=== PATIENT | male | born 2000 | race Caucasian/White ===

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

== ENCOUNTER 2022-05-24 12:01 | Inpatient (IN) | payer OTHER ==
[2022-05-24] MEDS ORDERED: SODIUM CHLORIDE 1,000 ML IV STA ×2 (12:24→15:16)
[2022-05-24] MEDS ORDERED: ONDANSETRON 4 MG/2 ML VIAL IVPUSH ONE (12:25)
[2022-05-24] MEDS ORDERED: ACETAMINOPHEN 1000 MG/100 ML BAG IVPB ONE (12:26)
[2022-05-24] MEDS ORDERED: ONDANSETRON 4 MG/2 ML VIAL ONE (12:47)
[2022-05-24] MEDS ORDERED: ACETAMINOPHEN INJECTION 100 ML IVPB ONE (12:47)
[2022-05-24 12:57] LABS: BASO % 0.3 % (0-2.0); EOS % 0.4 % (0-4.5); HEMATOCRIT 40.5 % (35.4-49); HEMOGLOBIN 13.8 GM/dL (11.7-16.9); LYMPH % 9.8 % (8-40); MCH 26.4 pg (25.7-33.7); MEAN CELL VOLUME 77.6 fl (80-96); MEAN PLT VOLUME 8.5 fl (7.5-11.1); NEUT % 79.5 % (42.8-82.8); PLATELET COUNT 194 10^3/uL (134-434); RBC 5.21 M/mm3 (4.00-5.60); RDW 13.8 % (11.9-15.9); WHITE BLOOD COUNT 10.7 K/mm3 (4.0-10.0)
[2022-05-24] MEDS ORDERED: morphine CARPU-JECT 2 MG/1 ML DISP.SYRIN IM ONE (12:57)
[2022-05-24] MEDS ORDERED: METOCLOPRAMIDE HCL INJECTION 10 MG/2 ML VIAL IVPUSH ONE (12:59)
[2022-05-24] MEDS ORDERED: METOCLOPRAMIDE HCL INJECTION 10 MG/2 ML VIAL ONE (13:00)
[2022-05-24 13:26] LABS: CALCIUM 9.6 mg/dL (8.5-10.1)
[2022-05-24] MEDS ORDERED: KETOROLAC TROMETHAMINE 30 MG/1 ML VIAL IVPUSH ONE (13:26)
[2022-05-24] MEDS ORDERED: KETOROLAC TROMETHAMINE 30 MG/1 ML VIAL ONE (13:26)
[2022-05-24 13:28] LABS: ALBUMIN 4.2 g/dl (3.4-5.0); BLOOD UREA NITROGEN 7.2 mg/dL (7-18)
[2022-05-24 13:30] LABS: CREATININE 1.1 mg/dL (0.55-1.3)
[2022-05-24 13:31] LABS: BILIRUBIN,TOTAL 1.2 mg/dL (0.2-1); TOT PROT 7.2 g/dl (6.4-8.2)
[2022-05-24] MEDS ORDERED: CEFTRIAXONE 1 GM in DEXTROSE 5%-WATER - 100 ML IVPB ONE (15:27)
[2022-05-24] MEDS ORDERED: CEFTRIAXONE 1 GM/50 ML BAG ONE (15:37)
[2022-05-24 16:45] LABS: ACTIVATED PTT 30.7 SECONDS (25.2-36.5); INR 1.19 (0.83-1.09); PROTHROMBIN TIME (PATIENT) 13.7 SEC (9.7-13.0)
[2022-05-24 17:14] LABS: EPI CELLS 5 /uL (0-25.1); HYALINE CASTS 1 /uL (0-3.1); URINE APPEARANCE CLEAR; URINE BACTERIA 3 /uL (0-1359); URINE BILIRUBIN NEGATIVE (NEGATIVE); URINE COLOR YELLOW; URINE GLUCOSE (UA) NEGATIVE (NEGATIVE); URINE KETONE 1+ (NEGATIVE); URINE LEUK ESTERASE NEGATIVE (NEGATIVE); URINE NITRITE NEGATIVE (NEGATIVE); URINE PROTEIN NEGATIVE (NEGATIVE); URINE RBC 288 /uL (0-23.9); URINE UROBILINOGEN 0.2 mg/dL (0.2-1.0); URINE WBC 12 /uL (0-25.8)
[2022-05-24] MEDS ORDERED: ONDANSETRON 4 MG/2 ML VIAL IVPUSH PRN (18:01)
[2022-05-24] MEDS ORDERED: TAMSULOSIN HCL 0.4 MG CAP PO ONE (19:05)
[2022-05-24] MEDS: SODIUM CHLORIDE 1,000 ML IV SCH (19:15)
[2022-05-24] MEDS ORDERED: TAMSULOSIN HCL 0.4 MG CAP ONE (20:00)
[2022-05-24] MEDS ORDERED: KETOROLAC TROMETHAMINE 15 MG/ML VIAL ONE (23:50)
[2022-05-24] MEDS: KETOROLAC TROMETHAMINE 15 MG/ML VIAL IVPUSH PRN (23:55)
[2022-05-25 01:14] VITALS: BMI 38.9
[2022-05-25] MEDS: SODIUM CHLORIDE 1,000 ML IV SCH ×2 (01:30→09:49)
[2022-05-25] MEDS: ACETAMINOPHEN 325 MG TABLET (FP) PO PRN ×2 (01:30→08:20)
[2022-05-25] MEDS: KETOROLAC TROMETHAMINE 15 MG/ML VIAL IVPUSH PRN ×2 (04:17→22:55)
[2022-05-25] MEDS ORDERED: TAMSULOSIN HCL 0.4 MG CAP PO SCH (08:30)
[2022-05-25] MEDS ORDERED: PNEUMOC 20-VAL CONJ-DIP CRM/PF 0.5 ML SYRINGE IM ONE (10:00)
[2022-05-25] MEDS ORDERED: CEFTRIAXONE 1 GM in DEXTROSE 5%-WATER - 50 ML IVPB SCH (10:00)
[2022-05-25] MEDS ORDERED: ACETAMINOPHEN 1000 MG/100 ML BAG IVPB ONE (10:45)
[2022-05-25] MEDS ORDERED: morphine CARPU-JECT 2 MG/1 ML DISP.SYRIN IVPUSH ONE (11:00)
[2022-05-25] MEDS ORDERED: oxyCODONE HCL 5 MG TABLET PO PRN (11:56)
[2022-05-25] MEDS ORDERED: LACTATED RINGERS SOLUTION 1,000 ML IV SCH (12:00)
[2022-05-25] MEDS ORDERED: MIDAZOLAM HCL 2 MG/2 ML SINGLE DOSE VIAL ONE (12:26)
[2022-05-25] MEDS ORDERED: PROPOFOL 20 ML ONE ×3 (12:26→12:52)
[2022-05-25] MEDS ORDERED: ePHEDrine SULFATE 50 MG/1 ML AMPULE ONE (12:28)
[2022-05-25] MEDS ORDERED: SUCCINYLCHOLINE CHLORIDE 200 MG/10 ML SYRINGE ONE (12:28)
[2022-05-25] MEDS ORDERED: ceFAZolin SODIUM 1 GM VIAL IVPB ONE (12:45)
[2022-05-25] MEDS ORDERED: LIDOCAINE HCL 2% JELLY 10 ML CARTRIDGE ONE (13:07)
[2022-05-25] MEDS ORDERED: ONDANSETRON 4 MG/2 ML VIAL IVPUSH PRN (13:48)
[2022-05-25] MEDS: LACTATED RINGERS SOLUTION 1,000 ML IV SCH ×2 (15:54→18:21)
[2022-05-25] MEDS ORDERED: ACETAMINOPHEN 1000 MG/100 ML BAG IVPB PRN (16:00)
[2022-05-25] MEDS ORDERED: ACETAMINOPHEN 325 MG TABLET (FP) PO PRN (17:59)
[2022-05-26] MEDS: KETOROLAC TROMETHAMINE 15 MG/ML VIAL IVPUSH PRN ×2 (09:31→18:18)
[2022-05-26] MEDS: CEFTRIAXONE 1 GM in DEXTROSE 5%-WATER - 50 ML IVPB SCH (09:31)
[2022-05-26] MEDS: TAMSULOSIN HCL 0.4 MG CAP PO SCH (09:31)
[2022-05-26 10:00] LABS: HEMATOCRIT 37.8 % (35.4-49); HEMOGLOBIN 12.7 GM/dL (11.7-16.9); MCH 25.7 pg (25.7-33.7); MCHC 33.7 g/dl (32.0-35.9); MEAN CELL VOLUME 76.5 fl (80-96); MEAN PLT VOLUME 9.3 fl (7.5-11.1); PLATELET COUNT 174 10^3/uL (134-434); RBC 4.95 M/mm3 (4.00-5.60); RDW 13.8 % (11.9-15.9); WHITE BLOOD COUNT 10.3 K/mm3 (4.0-10.0)
[2022-05-26 10:25] LABS: ALBUMIN 3.4 g/dl (3.4-5.0)
[2022-05-26 10:28] LABS: BLOOD UREA NITROGEN 8.4 mg/dL (7-18)
[2022-05-26 10:31] LABS: CREATININE 0.7 mg/dL (0.55-1.3)
[2022-05-26 10:32] LABS: BILIRUBIN,TOTAL 0.8 mg/dL (0.2-1); TOT PROT 6.2 g/dl (6.4-8.2)
[2022-05-26 10:36] LABS: CALCIUM 8.9 mg/dL (8.5-10.1)
[2022-05-26] MEDS: LACTATED RINGERS SOLUTION 1,000 ML IV SCH (16:26)
[2022-05-27] MEDS: KETOROLAC TROMETHAMINE 15 MG/ML VIAL IVPUSH PRN ×4 (00:15→21:16)
[2022-05-27] MEDS: TAMSULOSIN HCL 0.4 MG CAP PO SCH (08:26)
[2022-05-27] MEDS: CEFTRIAXONE 1 GM in DEXTROSE 5%-WATER - 50 ML IVPB SCH (09:45)
[2022-05-27 10:15] LABS: BASO % 0.6 % (0-2.0); EOS % 1.6 % (0-4.5); HEMATOCRIT 40.9 % (35.4-49); HEMOGLOBIN 13.6 GM/dL (11.7-16.9); LYMPH % 17.3 % (8-40); MCH 25.7 pg (25.7-33.7); MCHC 33.2 g/dl (32.0-35.9); MEAN CELL VOLUME 77.4 fl (80-96); MEAN PLT VOLUME 8.8 fl (7.5-11.1); MONO % 11.5 % (3.8-10.2); PLATELET COUNT 186 10^3/uL (134-434); RBC 5.29 M/mm3 (4.00-5.60); RDW 13.6 % (11.9-15.9); WHITE BLOOD COUNT 7.6 K/mm3 (4.0-10.0)
[2022-05-27] MEDS ORDERED: LACTATED RINGERS SOLUTION 1,000 ML IV SCH ×2 (14:29→18:47)
[2022-05-27] MEDS: LACTATED RINGERS SOLUTION 1,000 ML IV SCH (18:52)
[2022-05-27 20:34] VITALS: RESP 20
[2022-05-28] MEDS: KETOROLAC TROMETHAMINE 15 MG/ML VIAL IVPUSH PRN ×2 (03:34→09:58)
[2022-05-28] MEDS: TAMSULOSIN HCL 0.4 MG CAP PO SCH (09:57)
[2022-05-28] MEDS: CEFTRIAXONE 1 GM in DEXTROSE 5%-WATER - 50 ML IVPB SCH (09:57)
[2022-05-28 15:46] VITALS: BP 145/81; PULSE 58; TEMP 99
== END 2022-05-28 19:01 | disposition home or self-care (01) | DRG 465 ==
LOC: JER 12:01 → JASUSAT 12:56 → UNDOADMIN 12:56 → JERBED 12:56 → SUATTDRO 12:56 → J8W 05-25 00:30 → JERBED 05-25 00:30 → JASUSAT 05-26 18:18 → J8W 05-26 18:19
PROVIDERS: ADMIT Internal Medicine
PROC: BT1FZZZ Fluoroscopy of Left Kidney, Ureter and Bladder (ICD-10-PCS; 2022-05-25)
PROC: 0T778DZ Dilation of Left Ureter with Intraluminal Device, Via Natural or Artificial Opening Endoscopic (ICD-10-PCS; principal; 2022-05-25 14:30)
DX: N13.2 Hydronephrosis with renal and ureteral calculous obstruction (principal); H61.21 Impacted cerumen, right ear; H65.192 Other acute nonsuppurative otitis media, left ear; J45.909 Unspecified asthma, uncomplicated; R11.2 Nausea with vomiting, unspecified; G47.33 Obstructive sleep apnea (adult) (pediatric); R31.9 Hematuria, unspecified
CPT/HCPCS: 36415; 71046-TC-FY; 74176-TC; 76000-TC-FY; 76870-TC; 80053; 81003; 83690; 85025; 85027; 85610; 85730; 87086; 93005; 93010; 94660; 94760; 99285-25; C9803-CS; U0003; U0005

== ENCOUNTER 2022-05-29 10:26 | Inpatient (IN) | payer OTHER ==
[2022-05-29] MEDS ORDERED: KETOROLAC TROMETHAMINE 30 MG/1 ML VIAL IM ONE (10:43)
[2022-05-29] MEDS ORDERED: ONDANSETRON 4 MG/2 ML VIAL IVPUSH ONE (10:43)
[2022-05-29] MEDS ORDERED: ONDANSETRON 4 MG/2 ML VIAL ONE (11:03)
[2022-05-29] MEDS ORDERED: KETOROLAC TROMETHAMINE 30 MG/1 ML VIAL ONE (11:03)
[2022-05-29 11:22] VITALS: BMI 32.5
[2022-05-29 11:51] LABS: BASO % 0.3 % (0-2.0); EOS % 0.5 % (0-4.5); HEMATOCRIT 43.3 % (35.4-49); HEMOGLOBIN 14.6 GM/dL (11.7-16.9); LYMPH % 7.2 % (8-40); MCH 25.8 pg (25.7-33.7); MCHC 33.7 g/dl (32.0-35.9); MEAN CELL VOLUME 76.5 fl (80-96); MEAN PLT VOLUME 8.4 fl (7.5-11.1); MONO % 7.5 % (3.8-10.2); NEUT % 84.5 % (42.8-82.8); PLATELET COUNT 201 10^3/uL (134-434); RBC 5.66 M/mm3 (4.00-5.60); RDW 13.9 % (11.9-15.9); WHITE BLOOD COUNT 11.1 K/mm3 (4.0-10.0)
[2022-05-29] MEDS ORDERED: SODIUM CHLORIDE 0.9% 500 ML INFUS.BAG IV ONE (11:56)
[2022-05-29] MEDS ORDERED: KETOROLAC TROMETHAMINE 30 MG/1 ML VIAL IVPUSH ONE (11:57)
[2022-05-29 12:13] LABS: CALCIUM 9.4 mg/dL (8.5-10.1)
[2022-05-29 12:14] LABS: BLOOD UREA NITROGEN 9.4 mg/dL (7-18); MAGNESIUM 1.8 mg/dL (1.8-2.4)
[2022-05-29 12:17] LABS: CREATININE 0.8 mg/dL (0.55-1.3)
[2022-05-29 12:18] LABS: BILIRUBIN,TOTAL 0.7 mg/dL (0.2-1); TOT PROT 7.6 g/dl (6.4-8.2)
[2022-05-29 12:21] LABS: ALBUMIN 4.1 g/dl (3.4-5.0)
[2022-05-29] MEDS ORDERED: oxyCODONE HCL 5 MG TABLET PO PRN (15:49)
[2022-05-29] MEDS ORDERED: DOCUSATE SODIUM 100 MG CAPSULE (FP) PO PRN (15:49)
[2022-05-29] MEDS ORDERED: ACETAMINOPHEN 325 MG TABLET (FP) PO PRN (15:49)
[2022-05-29] MEDS ORDERED: SENNOSIDES 8.6MG TABLET (FP) PO PRN (15:49)
[2022-05-29 17:26] LABS: EPI CELLS 1 /uL (0-25.1); HYALINE CASTS 0 /uL (0-3.1); URINE APPEARANCE CLOUDY; URINE BACTERIA 8 /uL (0-1359); URINE BILIRUBIN NEGATIVE (NEGATIVE); URINE COLOR ORANGE; URINE GLUCOSE (UA) NEGATIVE (NEGATIVE); URINE KETONE 3+ (NEGATIVE); URINE LEUK ESTERASE 2+ (NEGATIVE); URINE NITRITE NEGATIVE (NEGATIVE); URINE PROTEIN 3+ (NEGATIVE); URINE RBC 442 /uL (0-23.9); URINE UROBILINOGEN 0.2 mg/dL (0.2-1.0); URINE WBC 1 /uL (0-25.8)
[2022-05-29] MEDS: SODIUM CHLORIDE 1,000 ML IV SCH (21:23)
[2022-05-29] MEDS: KETOROLAC TROMETHAMINE 15 MG/ML VIAL IVPUSH PRN (21:24)
[2022-05-29] MEDS ORDERED: CEFTRIAXONE 1 GM in DEXTROSE 5%-WATER - 50 ML IVPB SCH (22:00)
[2022-05-30 09:10] LABS: BASO % 0.4 % (0-2.0); EOS % 2.7 % (0-4.5); HEMATOCRIT 38.6 % (35.4-49); HEMOGLOBIN 13.2 GM/dL (11.7-16.9); MCH 26.3 pg (25.7-33.7); MCHC 34.1 g/dl (32.0-35.9); MEAN CELL VOLUME 77.1 fl (80-96); MEAN PLT VOLUME 8.6 fl (7.5-11.1); MONO % 11.2 % (3.8-10.2); NEUT % 68.7 % (42.8-82.8); PLATELET COUNT 177 10^3/uL (134-434); RBC 5.01 M/mm3 (4.00-5.60); RDW 13.7 % (11.9-15.9); WHITE BLOOD COUNT 8.1 K/mm3 (4.0-10.0)
[2022-05-30 09:20] LABS: CALCIUM 8.7 mg/dL (8.5-10.1)
[2022-05-30 09:21] LABS: ALBUMIN 3.4 g/dl (3.4-5.0); BLOOD UREA NITROGEN 10.1 mg/dL (7-18); MAGNESIUM 1.9 mg/dL (1.8-2.4)
[2022-05-30 09:24] LABS: CREATININE 0.7 mg/dL (0.55-1.3); PHOSPHOROUS 4.1 mg/dL (2.5-4.9)
[2022-05-30] MEDS: TAMSULOSIN HCL 0.4 MG CAP PO SCH (09:24)
[2022-05-30] MEDS: SODIUM CHLORIDE 1,000 ML IV SCH ×3 (09:24→20:37)
[2022-05-30] MEDS: ENOXAPARIN NA (PORCINE) 40 MG/0.4 ML DISP.SYRIN SQ SCH (09:24)
[2022-05-30 09:25] LABS: BILIRUBIN,TOTAL 0.4 mg/dL (0.2-1)
[2022-05-30 09:26] LABS: TOT PROT 6.1 g/dl (6.4-8.2)
[2022-05-30] MEDS: KETOROLAC TROMETHAMINE 15 MG/ML VIAL IVPUSH PRN (14:00)
[2022-05-30] MEDS: CEFTRIAXONE 2 GM in DEXTROSE 5%-WATER 100 ML IVPB SCH (16:19)
[2022-05-31] MEDS: SODIUM CHLORIDE 1,000 ML IV SCH ×3 (06:42→21:08)
[2022-05-31 08:29] LABS: HEMATOCRIT 39.8 % (35.4-49); HEMOGLOBIN 13.2 GM/dL (11.7-16.9); MCH 25.6 pg (25.7-33.7); MCHC 33.2 g/dl (32.0-35.9); MEAN CELL VOLUME 77.1 fl (80-96); MEAN PLT VOLUME 8.8 fl (7.5-11.1); PLATELET COUNT 190 10^3/uL (134-434); RBC 5.17 M/mm3 (4.00-5.60); RDW 13.8 % (11.9-15.9); WHITE BLOOD COUNT 8.1 K/mm3 (4.0-10.0)
[2022-05-31] MEDS: TAMSULOSIN HCL 0.4 MG CAP PO SCH (08:33)
[2022-05-31 09:26] LABS: ALBUMIN 3.4 g/dl (3.4-5.0); BLOOD UREA NITROGEN 8.9 mg/dL (7-18)
[2022-05-31 09:29] LABS: CREATININE 0.8 mg/dL (0.55-1.3)
[2022-05-31 09:30] LABS: BILIRUBIN,TOTAL 0.5 mg/dL (0.2-1); TOT PROT 6.2 g/dl (6.4-8.2)
[2022-05-31] MEDS: ENOXAPARIN NA (PORCINE) 40 MG/0.4 ML DISP.SYRIN SQ SCH (10:24)
[2022-05-31] MEDS: CEFTRIAXONE 2 GM in DEXTROSE 5%-WATER 100 ML IVPB SCH (10:24)
[2022-05-31] MEDS: KETOROLAC TROMETHAMINE 15 MG/ML VIAL IVPUSH PRN ×2 (12:05→21:08)
[2022-06-01] MEDS: TAMSULOSIN HCL 0.4 MG CAP PO SCH (08:31)
[2022-06-01] MEDS ORDERED: ONDANSETRON 4 MG/2 ML VIAL IVPUSH PRN ×2 (09:15→14:21)
[2022-06-01] MEDS: KETOROLAC TROMETHAMINE 15 MG/ML VIAL IVPUSH PRN (09:40)
[2022-06-01] MEDS: CEFTRIAXONE 2 GM in DEXTROSE 5%-WATER 100 ML IVPB SCH (09:40)
[2022-06-01 11:38] LABS: HEMOGLOBIN 14.2 GM/dL (11.7-16.9); MCH 25.4 pg (25.7-33.7); MCHC 32.4 g/dl (32.0-35.9); MEAN CELL VOLUME 78.3 fl (80-96); MEAN PLT VOLUME 9.4 fl (7.5-11.1); PLATELET COUNT 199 10^3/uL (134-434); RBC 5.61 M/mm3 (4.00-5.60); WHITE BLOOD COUNT 6.4 K/mm3 (4.0-10.0)
[2022-06-01 11:58] LABS: CALCIUM 9.1 mg/dL (8.5-10.1)
[2022-06-01 11:59] LABS: BLOOD UREA NITROGEN 10.4 mg/dL (7-18)
[2022-06-01 12:02] LABS: CREATININE 0.7 mg/dL (0.55-1.3)
[2022-06-01] MEDS ORDERED: MIDAZOLAM HCL 2 MG/2 ML SINGLE DOSE VIAL ONE (12:39)
[2022-06-01] MEDS ORDERED: LIDOCAINE HCL/PF 2% SDV 5ML VIAL ONE (12:39)
[2022-06-01] MEDS ORDERED: PROPOFOL 20 ML ONE ×2 (12:39→13:12)
[2022-06-01] MEDS ORDERED: DEXAMETHASONE SOD PHOSPHATE 4 MG/1 ML VIAL ONE (12:40)
[2022-06-01] MEDS ORDERED: oxyCODONE HCL 5 MG TABLET PO PRN (12:58)
[2022-06-01] MEDS ORDERED: LACTATED RINGERS SOLUTION 1,000 ML IV SCH (13:00)
[2022-06-01] MEDS ORDERED: ceFAZolin SODIUM 1 GM VIAL IVPB ONE (13:11)
[2022-06-01] MEDS ORDERED: ceFAZolin SODIUM 1 GM VIAL ONE (13:17)
[2022-06-01] MEDS ORDERED: LIDOCAINE HCL 2% JELLY (5 ML/TUBE) TP ONE (13:50)
[2022-06-01] MEDS ORDERED: SENNOSIDES 8.6MG TABLET (FP) PO PRN (14:21)
[2022-06-01] MEDS ORDERED: HYDROmorphone HCl 2 MG/ML VIAL ONE (14:52)
[2022-06-01] MEDS ORDERED: HYDROmorphone HCl 2 MG/ML VIAL IVPB ONE (15:55)
[2022-06-01] MEDS ORDERED: ACETAMINOPHEN 1000 MG/100 ML BAG IVPB PRN (16:12)
[2022-06-01] MEDS: LIDOCAINE 5% TOPICAL PATCH TP SCH (16:25)
[2022-06-01] MEDS: SODIUM CHLORIDE 1,000 ML IV SCH (16:25)
[2022-06-01] MEDS ORDERED: KETOROLAC TROMETHAMINE 30 MG/1 ML VIAL IM PRN (17:32)
[2022-06-01] MEDS ORDERED: KETOROLAC TROMETHAMINE 30 MG/1 ML VIAL IM ONE (17:32)
[2022-06-01] MEDS: LIDOCAINE PATCH REMOVAL MC SCH (21:01)
[2022-06-01] MEDS ORDERED: OLANZapine 2.5 MG TABLET PO SCH (22:00)
[2022-06-02] MEDS: ACETAMINOPHEN 1000 MG/100 ML BAG IVPB PRN ×2 (00:28→08:51)
[2022-06-02] MEDS: TAMSULOSIN HCL 0.4 MG CAP PO SCH (08:36)
[2022-06-02] MEDS: SODIUM CHLORIDE 1,000 ML IV SCH ×2 (08:36→16:28)
[2022-06-02] MEDS: LIDOCAINE 5% TOPICAL PATCH TP SCH (09:29)
[2022-06-02] MEDS: CEFTRIAXONE 2 GM in DEXTROSE 5%-WATER 100 ML IVPB SCH (09:36)
[2022-06-02 12:09] LABS: HEMATOCRIT 44.2 % (35.4-49); HEMOGLOBIN 14.9 GM/dL (11.7-16.9); MCHC 33.6 g/dl (32.0-35.9); MEAN CELL VOLUME 77.6 fl (80-96); MEAN PLT VOLUME 9.1 fl (7.5-11.1); PLATELET COUNT 199 10^3/uL (134-434); RDW 14.1 % (11.9-15.9); WHITE BLOOD COUNT 9.1 K/mm3 (4.0-10.0)
[2022-06-02 12:35] LABS: BLOOD UREA NITROGEN 8.6 mg/dL (7-18); CALCIUM 8.9 mg/dL (8.5-10.1)
[2022-06-02 12:38] LABS: CREATININE 0.8 mg/dL (0.55-1.3)
[2022-06-02] MEDS: KETOROLAC TROMETHAMINE 30 MG/1 ML VIAL IM PRN ×2 (13:36→21:15)
[2022-06-02] MEDS: DOCUSATE SODIUM 100 MG CAPSULE (FP) PO PRN (13:36)
[2022-06-02] MEDS: LIDOCAINE PATCH REMOVAL MC SCH (22:22)
[2022-06-03] MEDS: SODIUM CHLORIDE 1,000 ML IV SCH ×3 (00:39→16:27)
[2022-06-03] MEDS: TAMSULOSIN HCL 0.4 MG CAP PO SCH (07:32)
[2022-06-03] MEDS: LIDOCAINE 5% TOPICAL PATCH TP SCH (09:26)
[2022-06-03] MEDS: CEFTRIAXONE 2 GM in DEXTROSE 5%-WATER 100 ML IVPB SCH (09:26)
[2022-06-03] MEDS: DOCUSATE SODIUM 100 MG CAPSULE (FP) PO PRN (09:32)
[2022-06-03 10:34] LABS: BASO % 0.6 % (0-2.0); EOS % 1.6 % (0-4.5); HEMATOCRIT 40.8 % (35.4-49); HEMOGLOBIN 13.4 GM/dL (11.7-16.9); LYMPH % 14.6 % (8-40); MCH 25.2 pg (25.7-33.7); MCHC 32.7 g/dl (32.0-35.9); MEAN CELL VOLUME 77.1 fl (80-96); MEAN PLT VOLUME 9.3 fl (7.5-11.1); MONO % 10.8 % (3.8-10.2); NEUT % 72.4 % (42.8-82.8); PLATELET COUNT 185 10^3/uL (134-434); RDW 13.9 % (11.9-15.9); WHITE BLOOD COUNT 9.2 K/mm3 (4.0-10.0)
[2022-06-03 11:07] LABS: BLOOD UREA NITROGEN 10.2 mg/dL (7-18); CALCIUM 8.8 mg/dL (8.5-10.1)
[2022-06-03 11:11] LABS: CREATININE 0.8 mg/dL (0.55-1.3)
[2022-06-03] MEDS: POLYETHYLENE GLYCOL (HEALTHYLAX) 3350 17 GM PACKET PO SCH ×2 (11:37→22:30)
[2022-06-03] MEDS: morphine SULFATE 4 MG/ML VIAL IVPUSH PRN ×2 (13:23→20:45)
[2022-06-03] MEDS: LIDOCAINE PATCH REMOVAL MC SCH (22:30)
[2022-06-04] MEDS: TAMSULOSIN HCL 0.4 MG CAP PO SCH (08:42)
[2022-06-04] MEDS: SODIUM CHLORIDE 1,000 ML IV SCH ×2 (08:52→21:41)
[2022-06-04] MEDS: CEFTRIAXONE 2 GM in DEXTROSE 5%-WATER 100 ML IVPB SCH (10:07)
[2022-06-04] MEDS: LIDOCAINE 5% TOPICAL PATCH TP SCH (10:08)
[2022-06-04] MEDS: ENOXAPARIN NA (PORCINE) 40 MG/0.4 ML DISP.SYRIN SQ SCH (10:08)
[2022-06-04] MEDS: POLYETHYLENE GLYCOL (HEALTHYLAX) 3350 17 GM PACKET PO SCH ×2 (10:08→21:41)
[2022-06-04] MEDS: KETOROLAC TROMETHAMINE 30 MG/1 ML VIAL IM PRN ×2 (13:49→21:48)
[2022-06-04] MEDS: LIDOCAINE PATCH REMOVAL MC SCH (21:49)
[2022-06-05] MEDS: TAMSULOSIN HCL 0.4 MG CAP PO SCH (08:05)
[2022-06-05] MEDS: ENOXAPARIN NA (PORCINE) 40 MG/0.4 ML DISP.SYRIN SQ SCH (09:14)
[2022-06-05] MEDS: CEFTRIAXONE 2 GM in DEXTROSE 5%-WATER 100 ML IVPB SCH (09:15)
[2022-06-05] MEDS: POLYETHYLENE GLYCOL (HEALTHYLAX) 3350 17 GM PACKET PO SCH ×2 (09:15→23:10)
[2022-06-05] MEDS: LIDOCAINE 5% TOPICAL PATCH TP SCH (09:48)
[2022-06-05] MEDS: SODIUM CHLORIDE 1,000 ML IV SCH ×2 (14:29→23:12)
[2022-06-05] MEDS: LIDOCAINE PATCH REMOVAL MC SCH (23:11)
[2022-06-05] MEDS: KETOROLAC TROMETHAMINE 30 MG/1 ML VIAL IM PRN (23:17)
[2022-06-06] MEDS: TAMSULOSIN HCL 0.4 MG CAP PO SCH (08:52)
[2022-06-06] MEDS: CEFTRIAXONE 2 GM in DEXTROSE 5%-WATER 100 ML IVPB SCH (09:35)
[2022-06-06] MEDS: LIDOCAINE 5% TOPICAL PATCH TP SCH (09:35)
[2022-06-06] MEDS: KETOROLAC TROMETHAMINE 30 MG/1 ML VIAL IM PRN ×2 (09:35→17:42)
[2022-06-06] MEDS: ENOXAPARIN NA (PORCINE) 40 MG/0.4 ML DISP.SYRIN SQ SCH (09:36)
[2022-06-06] MEDS: POLYETHYLENE GLYCOL (HEALTHYLAX) 3350 17 GM PACKET PO SCH (09:37)
[2022-06-06] MEDS ORDERED: SENNOSIDES 8.6MG TABLET (FP) PO SCH (12:57)
[2022-06-06] MEDS: SODIUM CHLORIDE 1,000 ML IV SCH (16:03)
[2022-06-06 16:18] VITALS: RESP 18
[2022-06-06] MEDS: DOCUSATE SODIUM 100 MG CAPSULE (FP) PO PRN (17:43)
[2022-06-06 20:35] VITALS: BP 130/74; PULSE 81; TEMP 98.1
== END 2022-06-06 21:26 | disposition left against medical advice (07) | DRG 443 ==
LOC: JER 10:26 → JERBED 15:31 → UNDOADMOB 15:31 → INTOOBSV 15:31 → JERBED 17:32 → J5S 21:17 → OBSVTOIN 05-31 09:55
PROVIDERS: ADMIT Internal Medicine
PROC: 0TP98DZ Removal of Intraluminal Device from Ureter, Via Natural or Artificial Opening Endoscopic (ICD-10-PCS; 2022-06-01)
PROC: BT1FZZZ Fluoroscopy of Left Kidney, Ureter and Bladder (ICD-10-PCS; 2022-06-01)
PROC: 0TC78ZZ Extirpation of Matter from Left Ureter, Via Natural or Artificial Opening Endoscopic (ICD-10-PCS; principal; 2022-06-01 13:00)
DX: N13.2 Hydronephrosis with renal and ureteral calculous obstruction (principal); E66.9 Obesity, unspecified; Z68.32 Body mass index [BMI] 32.0-32.9, adult; F39 Unspecified mood [affective] disorder; Z91.14 Patient's other noncompliance with medication regimen; R11.2 Nausea with vomiting, unspecified
CPT/HCPCS: 36415; 71045-TC-FY; 76000-TC-FY; 80048; 80053; 81003; 83690; 83735; 84100; 85025; 85027; 87040; 87086; 93005; 93010; 94660; 94760; 99285-25; C9803-CS; G0378; U0003; U0005

== ENCOUNTER 2022-06-07 00:19 | Emergency (ER) | payer OTHER ==
[2022-06-07 01:14] VITALS: BP 123/78; PULSE 88; RESP 17; TEMP 98.4; BMI 32.5
[2022-06-07] MEDS ORDERED: ONDANSETRON 4 MG/2 ML VIAL IVPUSH ONE (02:52)
[2022-06-07] MEDS ORDERED: ACETAMINOPHEN 1000 MG/100 ML BAG IVPB ONE (02:52)
[2022-06-07] MEDS ORDERED: ACETAMINOPHEN INJECTION 100 ML IVPB ONE (03:06)
[2022-06-07] MEDS ORDERED: ONDANSETRON 4 MG/2 ML VIAL ONE (03:07)
[2022-06-07 03:44] LABS: BASO % 0.7 % (0-2.0); EOS % 1.1 % (0-4.5); HEMATOCRIT 43.9 % (35.4-49); HEMOGLOBIN 14.7 GM/dL (11.7-16.9); LYMPH % 13.3 % (8-40); MCHC 33.4 g/dl (32.0-35.9); MEAN CELL VOLUME 77.6 fl (80-96); MEAN PLT VOLUME 8.8 fl (7.5-11.1); MONO % 11.8 % (3.8-10.2); NEUT % 73.1 % (42.8-82.8); PLATELET COUNT 245 10^3/uL (134-434); RBC 5.65 M/mm3 (4.00-5.60); RDW 13.9 % (11.9-15.9); WHITE BLOOD COUNT 9.6 K/mm3 (4.0-10.0)
[2022-06-07 03:46] LABS: EPI CELLS 17 /uL (0-25.1); HYALINE CASTS 6 /uL (0-3.1); URINE APPEARANCE CLEAR; URINE BACTERIA 47 /uL (0-1359); URINE BILIRUBIN NEGATIVE (NEGATIVE); URINE COLOR YELLOW; URINE GLUCOSE (UA) NEGATIVE (NEGATIVE); URINE KETONE TRACE (NEGATIVE); URINE LEUK ESTERASE NEGATIVE (NEGATIVE); URINE NITRITE NEGATIVE (NEGATIVE); URINE PROTEIN 1+ (NEGATIVE); URINE RBC 227 /uL (0-23.9); URINE UROBILINOGEN 0.2 mg/dL (0.2-1.0); URINE WBC 50 /uL (0-25.8)
[2022-06-07 03:49] LABS: INR 1.13 (0.83-1.09)
[2022-06-07 03:52] LABS: ACTIVATED PTT 31.8 SECONDS (25.2-36.5)
[2022-06-07 04:05] LABS: CALCIUM 9.7 mg/dL (8.5-10.1)
[2022-06-07 04:06] LABS: BLOOD UREA NITROGEN 16.4 mg/dL (7-18)
[2022-06-07 04:09] LABS: CREATININE 0.9 mg/dL (0.55-1.3)
[2022-06-07 04:10] LABS: BILIRUBIN,TOTAL 0.4 mg/dL (0.2-1); TOT PROT 7.5 g/dl (6.4-8.2)
[2022-06-07 04:15] LABS: ALBUMIN 4.2 g/dl (3.4-5.0)
[2022-06-07] MEDS ORDERED: KETOROLAC TROMETHAMINE 15 MG/ML VIAL IVPUSH ONE (04:30)
[2022-06-07] MEDS ORDERED: KETOROLAC TROMETHAMINE 15 MG/ML VIAL ONE (04:57)
== END 2022-06-07 06:02 | disposition home or self-care (01) ==
LOC: JER 00:19
PROC: 3E0333Z Introduction of Anti-inflammatory into Peripheral Vein, Percutaneous Approach (ICD-10-PCS; principal; 2022-06-07)
PROC: 3E0333Z Introduction of Anti-inflammatory into Peripheral Vein, Percutaneous Approach (ICD-10-PCS; 2022-06-07)
PROC: 3E033GC Introduction of Other Therapeutic Substance into Peripheral Vein, Percutaneous Approach (ICD-10-PCS; 2022-06-07)
DX: R10.32 Left lower quadrant pain (principal)
CPT/HCPCS: 36415; 74177-TC; 80053; 81003; 83605; 85025; 85610; 85730; 86850; 86900; 86901; 87086; 99285-25; C9803-CS; Q9967; U0003; U0005

== ENCOUNTER 2022-12-21 05:44 | Observation (INO) | payer OTHER ==
[2022-12-21 05:55] VITALS: BMI 31.1
[2022-12-21] MEDS ORDERED: SODIUM CHLORIDE 0.9% 1000 ML INFUS.BAG IV ONE (07:15)
[2022-12-21] MEDS ORDERED: FAMOTIDINE 20 MG/50 ML IVPB 20 MG/50 ML MG IVPB ONE ×2 (07:15→07:43)
[2022-12-21] MEDS ORDERED: ACETAMINOPHEN 1000 MG/100 ML BAG IVPB ONE (08:31)
[2022-12-21] MEDS ORDERED: ONDANSETRON 4 MG/2 ML VIAL IVPB ONE (08:32)
[2022-12-21] MEDS ORDERED: ONDANSETRON 4 MG/2 ML VIAL ONE (08:35)
[2022-12-21] MEDS ORDERED: ACETAMINOPHEN INJECTION 100 ML IVPB ONE (08:35)
[2022-12-21 08:51] LABS: VENOUS BASE EXCESS 0.1 mmol/L (-2-2); VENOUS O2 SATURATION 92.6 % (70-80); VENOUS PCO2 26.6 mmHg (38-52); VENOUS PH 7.518 (7.310-7.410)
[2022-12-21 09:09] LABS: CHLORIDE 104 mmol/L (98-107); SODIUM 137 mmol/L (136-145)
[2022-12-21 09:12] LABS: ALBUMIN 4.3 g/dl (3.4-5.0); ANION GAP 13 MMOL/L (8-16); BLOOD UREA NITROGEN 13.3 mg/dL (7-18); CALCIUM 9.8 mg/dL (8.5-10.1); CO2 21 mmol/L (21-32); GLUCOSE,RANDOM 80 mg/dL (74-106); LIPASE 50 U/L (73-393)
[2022-12-21 09:14] LABS: BASO % 0.4 % (0-2.0); HEMATOCRIT 43.9 % (35.4-49); HEMOGLOBIN 15.1 GM/dL (11.7-16.9); LYMPH % 7.7 % (8-40); MCH 26.3 pg (25.7-33.7); MCHC 34.3 g/dl (32.0-35.9); MEAN CELL VOLUME 76.7 fl (80-96); MEAN PLT VOLUME 9.1 fl (7.5-11.1); MONO % 6.8 % (3.8-10.2); NEUT % 85.1 % (42.8-82.8); PLATELET COUNT 238 10^3/uL (134-434); RBC 5.73 M/mm3 (4.00-5.60); RDW 14.1 % (11.9-15.9); WHITE BLOOD COUNT 10.7 K/mm3 (4.0-10.0)
[2022-12-21 09:15] LABS: CREATININE 0.8 mg/dL (0.55-1.3); SGOT/AST 8 U/L (15-37); SGPT/ALT 18 U/L (13-61)
[2022-12-21 09:16] LABS: BILIRUBIN,TOTAL 1.5 mg/dL (0.2-1)
[2022-12-21 09:17] LABS: TOT PROT 7.6 g/dl (6.4-8.2)
[2022-12-21 09:19] LABS: ALK PHOS 106 U/L (45-117)
[2022-12-21] MEDS ORDERED: HALOPERIDOL LACTATE 5 MG/ML IM ONE ×2 (10:49→10:57)
[2022-12-21] MEDS: D5-1/2NS+20 MEQ KCL - 20 MEQ/1,000 ML INFUS.BAG IV SCH ×2 (13:37→22:36)
[2022-12-21] MEDS: ONDANSETRON 4 MG/2 ML VIAL IVPUSH PRN ×2 (17:15→22:20)
[2022-12-22] MEDS ORDERED: ONDANSETRON 4 MG/2 ML VIAL IVPUSH ONE (01:35)
[2022-12-22 04:48] LABS: URINE APPEARANCE CLEAR; URINE BILIRUBIN NEGATIVE (NEGATIVE); URINE COLOR YELLOW; URINE GLUCOSE (UA) NEGATIVE (NEGATIVE); URINE KETONE 3+ (NEGATIVE); URINE LEUK ESTERASE NEGATIVE (NEGATIVE); URINE NITRITE NEGATIVE (NEGATIVE); URINE PROTEIN NEGATIVE (NEGATIVE)
[2022-12-22 04:56] LABS: OPIATES, URI NEGATIVE (NEGATIVE); PHENCYCLIDINE,URINE NEGATIVE (NEGATIVE); URINE BARBITURATES NEGATIVE (NEGATIVE); URINE BENZODIAZEPINES NEGATIVE (NEGATIVE)
[2022-12-22] MEDS ORDERED: ACETAMINOPHEN 1000 MG/100 ML BAG IVPB PRN (04:56)
[2022-12-22 05:03] LABS: COCAINE, UR NEGATIVE (NEGATIVE); METHADONE, UR NEGATIVE (NEGATIVE); URINE AMPHETAMINES NEGATIVE (NEGATIVE)
[2022-12-22] MEDS: ONDANSETRON 4 MG/2 ML VIAL IVPUSH PRN (08:20)
[2022-12-22 10:40] LABS: BASO % 0.5 % (0-2.0); EOS % 0.3 % (0-4.5); HEMATOCRIT 41.1 % (35.4-49); HEMOGLOBIN 13.7 GM/dL (11.7-16.9); LYMPH % 12.5 % (8-40); MCHC 33.3 g/dl (32.0-35.9); MEAN CELL VOLUME 78.1 fl (80-96); MEAN PLT VOLUME 9.3 fl (7.5-11.1); MONO % 9.6 % (3.8-10.2); NEUT % 77.1 % (42.8-82.8); PLATELET COUNT 219 10^3/uL (134-434); RBC 5.25 M/mm3 (4.00-5.60); RDW 13.7 % (11.9-15.9); WHITE BLOOD COUNT 9.1 K/mm3 (4.0-10.0)
[2022-12-22 11:08] LABS: ALBUMIN 3.8 g/dl (3.4-5.0); BLOOD UREA NITROGEN 8.8 mg/dL (7-18); CALCIUM 9.1 mg/dL (8.5-10.1)
[2022-12-22 11:11] LABS: PHOSPHOROUS 2.8 mg/dL (2.5-4.9)
[2022-12-22 11:12] LABS: BILIRUBIN,DIRECT 0.3 mg/dL (0.0-0.2); CREATININE 0.8 mg/dL (0.55-1.3)
[2022-12-22 11:13] LABS: BILIRUBIN,TOTAL 1.4 mg/dL (0.2-1); TOT PROT 6.9 g/dl (6.4-8.2)
[2022-12-22 13:45] VITALS: RESP 17
[2022-12-22 13:47] VITALS: TEMP 98.3
[2022-12-22 14:44] VITALS: BP 156/76; PULSE 80
== END 2022-12-22 17:23 | disposition home or self-care (01) ==
LOC: JER 05:44 → JERBED 12:12 → J6S 15:31
PROVIDERS: ADMIT Internal Medicine; ATTEND Internal Medicine
PROC: 3E033NZ Introduction of Analgesics, Hypnotics, Sedatives into Peripheral Vein, Percutaneous Approach (ICD-10-PCS; principal; 2022-12-21)
PROC: 3E033GC Introduction of Other Therapeutic Substance into Peripheral Vein, Percutaneous Approach (ICD-10-PCS; 2022-12-21)
PROC: 3E023GC Introduction of Other Therapeutic Substance into Muscle, Percutaneous Approach (ICD-10-PCS; 2022-12-21)
PROC: 3E0337Z Introduction of Electrolytic and Water Balance Substance into Peripheral Vein, Percutaneous Approach (ICD-10-PCS; 2022-12-21)
DX: R11.2 Nausea with vomiting, unspecified (principal); F12.90 Cannabis use, unspecified, uncomplicated; F41.9 Anxiety disorder, unspecified; E66.8 Other obesity; R45.851 Suicidal ideations; Z68.31 Body mass index [BMI] 31.0-31.9, adult; G47.33 Obstructive sleep apnea (adult) (pediatric); F17.210 Nicotine dependence, cigarettes, uncomplicated
CPT/HCPCS: 36415; 71045-TC-FY; 80053; 80307; 81003; 82248; 82803; 83690; 84100; 85025; 87086; 93005; 93010; 94660; 96365; 96372; 96375; 96376; 99285-25; C9803-CS; G0378; U0003; U0005